=== PATIENT | male | born 1965 | race Two or more races ===

== ENCOUNTER 2017-01-18 07:36 | Emergency (ER) | payer OTHER ==
--- NOTE | ~2017-01-18 | EKG ---
PATIENT: HARSHA GUTIERREZ UNIT #: [id number] Ventricular Rate: 91 BPM Atrial Rate: 91 BPM P-R Interval: 152 ms QRS Duration: 88 ms Q-T Interval: 378 ms QTC Calculation(Bezet): 464 ms P [place]: 53 degrees Calculated R [place]: 32 degrees Calculated T [place]: 37 degrees Diagnosis Line: Normal sinus rhythm Diagnosis Line: Normal ECG Diagnosis Line: When compared with ECG of 18-JAN-2017 06:47, Diagnosis Line: (unconfirmed) Diagnosis Line: No significant change was found Diagnosis Line: Confirmed by ADITYA PERES MD ([id number]) on 01/20/2017 Diagnosis Line: 9:44:21 AM INTERPRETING MD: LARISA SNOWDEN
[2017-01-18 07:05] LABS: BASOPHIL# 0.1 X10e3 (0-0.3); BASOPHIL% 3.4 % (0-2.5); DIFF IND NO; EOSINOPHIL% 0.7 % (0.0-7.0); HEMATOCRIT 42.4 % (38.0-50.0); HEMOGLOBIN 14.4 gm/dL (13.0-16.0); LYMPHOCYTE# 0.9 X10e3 (1.0-3.5); LYMPHOCYTE% 22.2 % (17.0-45.0); MEAN CELL VOLUME 99.2 FL (83-96); MEAN CORPUSCULAR HEMOGLOBIN 33.7 PG (28-34); MEAN PLATELET VOLUME 9.8 FL (6.5-11.5); MONOCYTE# 0.4 X10e3 (0-1.0); MONOCYTE% 9.1 % (3.0-12.0); NEUTROPHIL# 2.5 X10e3 (1.5-7.1); NEUTROPHIL% 64.6 % (40-75); PLATELET COUNT 139 X10e3 (140-420); RED BLOOD COUNT 4.28 X10e (3.90-5.60); RED CELL DISTRIBUTION WIDTH 12.5 % (11.0-15.5); WHITE BLOOD COUNT 3.9 X10e3 (4.0-10.5)
[2017-01-18 07:06] LABS: POC - CKMB 6.3 ng/mL (0.0-7.9); POC - TROPONIN <0.05 ng/mL (<=0.05)
[2017-01-18 08:09] LABS: ALBUMIN SERUM 4.8 g/dL (3.5-5.0); BILIRUBIN, DIRECT 0.2 mg/dL (0.0-0.2); BILIRUBIN,TOTAL 1.2 mg/dL (0.2-2.0); BUN/CREATININE RATIO 14.28; CALCIUM SERUM 9.1 mg/dL (8.4-10.2); CREATININE SERUM 0.7 mg/dL (0.6-1.4); GLOM FILT RATE Estimated 109.3 mL/min (>60); POTASSIUM 3.3 mmol/L (3.5-5.1); PROTEIN TOTAL SERUM 8.5 g/dL (6.0-8.3)
== END 2017-01-18 10:00 | disposition home or self-care (01) ==
LOC: CED 07:36
PROVIDERS: Emergency Medicine
DX: R10.13 Epigastric pain (principal); R11.2 Nausea with vomiting, unspecified
CPT/HCPCS: 36415; 80048; 80076; 82553; 83690; 84484; 85025; 93005; 96374; 96375; 99284; J2270; J2405

== ENCOUNTER 2017-05-12 14:15 | Observation (INO) | payer OTHER ==
[~2017-05-12] VITALS: Ht 167.6 cm; Wt 73.4 kg
--- NOTE | ~2017-05-12 | HP ---
Unit #: [id number] #: [id number] Patient: HARSHA GUTIERREZ [id number] [facility] [address] [place], [place] [address] [id number] MR#: [id number] NAME: HARSHA GUTIERREZ. ROOM: 330 Age: Sex: M Admission Date: 05/12/2017 : 1965 Attending Physician: Ricarda Greer M.D. Primary Care Physician: Primary Care Physician No HISTORY AND PHYSICAL REVISED/ADDENDED REPORT CHIEF COMPLAINT Nausea and vomiting. HISTORY OF PRESENT ILLNESS The patient is a 52-year-old male with a past medical history of alcohol abuse who presented to the emergency department for evaluation of the above. The patient states that he has nausea and vomiting for three days. He reports more than ten bouts of nonbloody emesis within the past 24 hours. He denies any diarrhea. He states he has had abdominal cramping. He denies any fever. No cough or cold symptoms. No urinary problems. He drinks most days. He states that he drinks rum. JOB [id number] ADDENDUM HPI In the emergency department, initial pulse was 100, blood pressure 166/95. Acute abdominal series was negative. Laboratory notable for AST and ALT and 159 and 59, respectively. He was noted to be tremulous. He received a total of 2 mg of Ativan, 1 liter of normal saline, 4 mg of Zofran. He is being admitted to [facility] for evaluation and further treatment. PAST MEDICAL HISTORY The patient denies significant chronic medical issues. PAST SURGICAL HISTORY The patient had endoscopy at [facility] a year ago (no records). SOCIAL HISTORY The patient lives with family. He drinks rum. He states that he typically drinks a few shots of rum most days. His last drink was on the 10 of May. He has gone through withdrawal in the past, but denies ever having withdrawal seizure. There is no tobacco use. He works at the [employer]. FAMILY HISTORY Notable for both parents being healthy. He denies a family history of diabetes. Unit #: [id number] #: [id number] Patient: HARSHA GUTIERREZ ALLERGIES No known allergies. HOME MEDICATIONS Listed Zofran p.r.n. REVIEW OF SYSTEMS A complete review of systems is negative, except as indicated in the HPI. DIAGNOSTIC TESTS IMAGING: Acute abdominal series is unremarkable. LABORATORY: Urine tox screen is negative. Urinalysis notable for 2+ protein, 1+ ketones. Comprehensive metabolic panel notable for glucose of 134, AST and ALT 159 and 59, respectively. Lipase is 36. Alcohol level is less than 5. Complete blood count notable for MCV of 99.5, platelets 132. PHYSICAL EXAMINATION VITAL SIGNS: Temperature is 98.9, pulse 100, respirations 16, blood pressure 166/95, oxygen saturation 97% on room air. GENERAL: The patient is awake and alert. He is somewhat diaphoretic. HEENT: The head is atraumatic. Mucous membranes are moist. NECK: Supple. Trachea is midline. CARDIOVASCULAR: Regular rate and rhythm. LUNGS: Clear to auscultation bilaterally with no increased work of breathing. ABDOMEN: Soft and nontender with bowel sounds present in all four quadrants. EXTREMITIES: Nontender with no pedal edema. NEUROLOGIC: The patient is awake and alert. He follows commands. He is somewhat tremulous. SKIN: Diaphoretic. ASSESSMENT The patient is a 52-year-old male with: 1. Alcohol withdrawal. The patient's last drink was May 10, 2017. He received a total of 2 mg of Ativan in the emergency department. 2. Transaminitis secondary to alcohol abuse. 3. Thrombocytopenia with platelet count of 132. PLAN 1. Admit for observation to intermediate level. 2. Advance to clear liquids as tolerated. 3. Alcohol withdrawal protocol to start now. 4. Librium 25 mg p.o. q.6 hours, first dose now. 5. manager ship, social work consult regarding alcohol abuse. 6. Check magnesium level and INR. 7. EKG and cardiac enzymes if not done. 8. Repeat labs in the morning. Unit #: [id number] #: [id number] Patient: HARSHA GUTIERREZ 9. SCDs for DVT prophylaxis. 10. Additional workup and consultants based on above. Dictated by Donavon Rascon TD: 05/13/2017 05:49 JOB #: [id number] Delete Sovera HISTORY AND PHYSICAL Page 1 of 1 X Ricarda Greer MD X HISTORY AND PHYSICAL
--- NOTE | ~2017-05-12 | CR2 ---
[facility] A Service of [facility] & [facility] RADIOLOGY TEXT RESULTS PATIENT: HARSHA GUTIERREZ LOCATION: [facility] : [birth year] UNIT #: [id number] AGE: [address]: Anthony Dorantes MD SEX: M ORDER DR: [id number] [facility] [address]. [place], [place] [address] [id number] MR#: [id number] Acc #: [id number] NAME: HARSHA GUTIERREZ : 1965 SEX: M STUDY DATE/TIME: 05/12/2017 14:58 UNIT: [facility] ROOM: STUDY DESCRIPTION: CR Abdomen Acute Series Attending Physician: Anthony Dorantes M.D. Ordering Physician: Anthony Dorantes M.D. Primary Care Physician: No Primary Care Physician MEDICAL IMAGING REPORT This report is preliminary unless electronic signature is present EXAM Acute abdominal series HISTORY Nausea, vomiting, abdominal pain for 1 day. FINDINGS PA upright of the chest demonstrates no acute cardiopulmonary disease. No free air noted in the diaphragms. Supine and upright views of the abdomen straits normal nonobstructive bowel gas pattern. No abnormal masses or calcifications. No organomegaly. Mild dextrocurvature lumbar spine with mild multilevel degenerative disc changes. IMPRESSION Unremarkable acute abdominal series. Dictated by... Tim Barber M.D. THIS IS AN ELECTRONICALLY VERIFIED REPORT iTm Barber M.D. at 05/12/2017 7:57 PM QUINTON/bree TD: 05/12/2017 16:21 JOB #: [id number] MEDICAL IMAGING REPORT Page 1 of 1 COPY
--- NOTE | ~2017-05-12 | DS ---
Unit #: [id number] #: [id number] Patient: HARSHA GUTIERREZ [id number] [address] [place], [place] [address] [id number] I MR#: [id number] NAME: HARSHA GUTIERREZ. ROOM: 330 Age: 52 Sex: M Admission Date: 05/12/2017 : 1965 Discharge Date: 05/14/2017 Attending Physician: Ronel Kelly M.D. Primary Care Physician: No Primary Care Physician DISCHARGE SUMMARY REASON FOR ADMISSION Nausea, vomiting. HISTORY OF PRESENT ILLNESS/HOSPITAL COURSE Patient is a 52-year-old male with a relatively unremarkable past medical history, with the exception of alcohol abuse, who presented secondary to several episodes of nausea, vomiting at home. Subsequently he was placed on telemetry floor. He had no acute episodes while he was here in the hospital. He was placed on CIWA protocol, as he was a daily alcohol drinker. He did not exhibit any acute withdrawal symptoms. His CIWA score, for the past 3 times, has been 0. He has received Librium on a scheduled basis. I will give him a prescription for Librium 25 mg p.o. q.8 times an additional 5 days. His laboratory studies are relatively unremarkable at time of discharge. His A1C is 5.2%. His LFTs borderline with an AST at 113, ALT at 46. His CBC shows a white blood cell count of 3.6, hemoglobin 13.8, platelets are 141. At this point in time patient is clinically stable for discharge. He will be discharged home with the understanding to follow up with the PCP in 7 to 10 days. I have also asked him to decrease his alcoholic intake significantly, as his AST is already elevated. He expressed understanding and agreement. All plans were reviewed with the patient's daughter, as well, who was present at bedside. FINAL DISCHARGE DIAGNOSES 1. Intractable nausea, vomiting likely secondary to alcohol withdrawal, now resolved. 2. Transaminitis/elevated LFTs likely secondary to chronic alcohol abuse. DISCHARGE MEDICATIONS Librium 25 mg p.o. q.8 x5 days. Dictated by... Donavon Horta/jerald Unit #: [id number] #: [id number] Patient: MATTAYEHARSHA Wu TD: 05/17/2017 13:50 JOB #: [id number] DISCHARGE SUMMARY Page 1 of 1 X Ronel Kelly MD X DISCHARGE SUMMARY
--- NOTE | ~2017-05-12 | EKG ---
PATIENT: HARSHA GUTIERREZ UNIT #: [id number] Ventricular Rate: 75 BPM Atrial Rate: 75 BPM P-R Interval: 152 ms QRS Duration: 92 ms Q-T Interval: 398 ms QTC Calculation(Bezet): 444 ms P [place]: -9 degrees Calculated R [place]: 24 degrees Calculated T [place]: 14 degrees Diagnosis Line: Normal sinus rhythm Diagnosis Line: Normal ECG Diagnosis Line: When compared with ECG of 12-MAY-2017 21:02, Diagnosis Line: (unconfirmed) Diagnosis Line: No significant change was found Diagnosis Line: Confirmed by ELISA SUBRAMANIAN MD ([id number]) on Diagnosis Line: 05/14/2017 4:43:13 PM INTERPRETING MD: CHINYERE
--- NOTE | ~2017-05-12 | EKG ---
PATIENT: HARSHA GUTIERREZ UNIT #: [id number] Ventricular Rate: 64 BPM Atrial Rate: 64 BPM P-R Interval: 170 ms QRS Duration: 100 ms Q-T Interval: 450 ms QTC Calculation(Bezet): 464 ms P [place]: 54 degrees Calculated R [place]: 57 degrees Calculated T [place]: 61 degrees Diagnosis Line: Normal sinus rhythm Diagnosis Line: Normal ECG Diagnosis Line: No previous ECGs available Diagnosis Line: Confirmed by ELISA SUBRAAMNIAN MD ([id number]) on Diagnosis Line: 05/14/2017 4:31:43 PM INTERPRETING MD: CHINYERE
[2017-05-12 15:03] LABS: BASOPHIL% 0.9 % (0-2.5); HEMATOCRIT 38.1 % (38.0-50.0); HEMOGLOBIN 13.2 gm/dL (13.0-16.0); LYMPHOCYTE# 0.4 X10e3 (1.0-3.5); LYMPHOCYTE% 8.9 % (17.0-45.0); MEAN CELL VOLUME 99.5 FL (83-96); MEAN CORPUSCULAR HEMOGLOBIN 34.5 PG (28-34); MEAN CORPUSCULAR HGB CONC 34.7 g/dL (30-36); MEAN PLATELET VOLUME 8.7 FL (6.5-11.5); MONOCYTE# 0.3 X10e3 (0-1.0); MONOCYTE% 6.1 % (3.0-12.0); NEUTROPHIL% 84.1 % (40-75); PLATELET COUNT 132 X10e3 (140-420); RED BLOOD COUNT 3.83 X10e (3.90-5.60); RED CELL DISTRIBUTION WIDTH 13.4 % (11.0-15.5); WHITE BLOOD COUNT 4.7 X10e3 (4.0-10.5)
[2017-05-12 15:06] LABS: DIFF IND NO
[2017-05-12 15:10] LABS: URINE SOURCE CLEAN CATCH
[2017-05-12 15:17] LABS: ALBUMIN SERUM 5.2 g/dL (3.5-5.0); ALKALINE PHOSPHATASE 48 U/L (32-92); ALT (SGPT) 59 U/L (10-40); AST (SGOT) 159 U/L (10-42); BILIRUBIN, DIRECT 0.2 mg/dL (0.0-0.2); BILIRUBIN,INDIRECT 1.1 mg/dL (0.0-0.9); BILIRUBIN,TOTAL 1.3 mg/dL (0.2-2.0); BLOOD UREA NITROGEN 14 mg/dL (9-23); CALCIUM SERUM 9.3 mg/dL (8.4-10.2); CARBON DIOXIDE 26 mmol/L (22-31); CHLORIDE 102 mmol/L (100-111); CREATININE SERUM 0.7 mg/dL (0.6-1.4); GLOM FILT RATE Estimated 108.5 mL/min (>60); GLUCOSE FASTING 134 mg/dL (70-110); LIPASE 36 U/L (22-51); POTASSIUM 3.8 mmol/L (3.5-5.1); PROTEIN TOTAL SERUM 8.9 g/dL (6.0-8.3); SODIUM 143 mmol/L (135-145)
[2017-05-12 15:24] LABS: URINE APPEARANCE CLEAR; URINE BILIRUBIN NEG (NEG); URINE BLOOD NEG (NEG); URINE COLOR DK YELLOW; URINE GLUCOSE NEG (NEG); URINE KETONE 1+ (NEG); URINE LEUKOCYTE ESTERASE NEG (NEG); URINE NITRATE NEG (NEG); URINE PH 7.5 (5-8); URINE PROTEIN 2+ (NEG); URINE SPECIFIC GRAVITY 1.029 (1.003-1.035)
[2017-05-12 15:25] LABS: ALCOHOL BLOOD <5 mg/dL (0)
[2017-05-12 15:30] LABS: URINE BACTERIA AUWI NEG (NEGATIVE); URINE SQUAMOUS EPITHELIAL CELL NONE SEEN /[HPF]; UWBCS1 AUWI 0-2 (0-5)
[2017-05-12 15:32] LABS: CULTURE INDICATED? NO
[2017-05-12 15:53] LABS: AMPHETAMINE NEG (NEG); BARBITURATES NEG (NEG); BENZODIAZEPINES NEG (NEG); COCAINE NEG (NEG); MARIJUANA NEG (NEG); OPIATES NEG (NEG); TRICYCLIC ANTIDEPRESSANTS NEG (NEG); U METHADONE NEG (NEG)
[2017-05-12 21:39] LABS: %MB 0.7 % (0.0-4.0); MB 6.8 ng/ml
[2017-05-13 00:15] LABS: INR 1.1; PROTHROMBIN TIME (PATIENT) 11.5 SECONDS (10.0-11.7)
[2017-05-13 00:43] LABS: ALBUMIN SERUM 4.6 g/dL (3.5-5.0); BILIRUBIN,TOTAL 1.3 mg/dL (0.2-2.0); BUN/CREATININE RATIO 23.33; CALCIUM SERUM 8.8 mg/dL (8.4-10.2); CREATININE SERUM 0.6 mg/dL (0.6-1.4); GLOM FILT RATE Estimated 115.6 mL/min (>60); POTASSIUM 3.6 mmol/L (3.5-5.1); PROTEIN TOTAL SERUM 7.9 g/dL (6.0-8.3)
[2017-05-13 00:47] LABS: THYROID STIMULATING HORMONE 1.69 uIU/ml (0.34-5.60)
[2017-05-13 00:54] LABS: FREE THYROXIN (T4) 0.6 ng/dL (0.58-1.64)
[2017-05-13 03:10] LABS: HEMATOCRIT 37.1 % (38.0-50.0); HEMOGLOBIN 12.6 gm/dL (13.0-16.0); MEAN CELL VOLUME 100.7 FL (83-96); MEAN CORPUSCULAR HEMOGLOBIN 34.2 PG (28-34); MEAN PLATELET VOLUME 9.2 FL (6.5-11.5); RED BLOOD COUNT 3.68 X10e (3.90-5.60); RED CELL DISTRIBUTION WIDTH 13.1 % (11.0-15.5); WHITE BLOOD COUNT 3.7 X10e3 (4.0-10.5)
[2017-05-13 03:25] LABS: INR 1.1; PROTHROMBIN TIME (PATIENT) 11.4 SECONDS (10.0-11.7)
[2017-05-13 03:43] LABS: ALBUMIN SERUM 4.4 g/dL (3.5-5.0); BUN/CREATININE RATIO 21.66; CALCIUM SERUM 8.7 mg/dL (8.4-10.2); CREATININE SERUM 0.6 mg/dL (0.6-1.4); GLOM FILT RATE Estimated 115.6 mL/min (>60); MAGNESIUM 1.8 mg/dL (1.6-3.0); POTASSIUM 3.4 mmol/L (3.5-5.1); PROTEIN TOTAL SERUM 7.9 g/dL (6.0-8.3)
[2017-05-13 04:38] LABS: %MB 0.8 % (0.0-4.0)
[2017-05-13 09:45] LABS: %MB 0.7 % (0.0-4.0); MB 5.9 ng/ml
[2017-05-14 05:41] LABS: HEMOGLOBIN 13.8 gm/dL (13.0-16.0); MEAN CELL VOLUME 100.2 FL (83-96); MEAN CORPUSCULAR HEMOGLOBIN 33.8 PG (28-34); MEAN CORPUSCULAR HGB CONC 33.7 g/dL (30-36); MEAN PLATELET VOLUME 9.7 FL (6.5-11.5); RED BLOOD COUNT 4.09 X10e (3.90-5.60); RED CELL DISTRIBUTION WIDTH 13.1 % (11.0-15.5); WHITE BLOOD COUNT 3.6 X10e3 (4.0-10.5)
[2017-05-14 06:27] LABS: ALBUMIN SERUM 4.4 g/dL (3.5-5.0); BILIRUBIN,TOTAL 1.2 mg/dL (0.2-2.0); BUN/CREATININE RATIO 14.28; CALCIUM SERUM 8.8 mg/dL (8.4-10.2); CREATININE SERUM 0.7 mg/dL (0.6-1.4); GLOM FILT RATE Estimated 108.5 mL/min (>60); MAGNESIUM 2.2 mg/dL (1.6-3.0); PROTEIN TOTAL SERUM 8.2 g/dL (6.0-8.3)
[2017-05-14] MEDS ORDERED: LIBRIUM25 M1 PO (13:20)
== END 2017-05-14 14:55 | disposition home or self-care (01) | DRG 897 ==
LOC: CED 14:15 → C3A PCU 19:30 → CEDOF 19:30 → CED 20:18 → CEDOF 20:18 → C3A PCU 23:07 → CEDOF 23:07 → C3A PCU 05-13 08:19
PROVIDERS: Emergency Medicine; Family Medicine
DX: F10.239 Alcohol dependence with withdrawal, unspecified (principal); R11.2 Nausea with vomiting, unspecified; R74.0 Nonspecific elevation of levels of transaminase and lactic acid dehydrogenase [LDH]; R94.5 Abnormal results of liver function studies; D69.6 Thrombocytopenia, unspecified
CPT/HCPCS: 36415; 74022; 80048; 80053; 80076; 80307; 81003; 82550; 82553; 83036; 83690; 83735; 84132; 84439; 84443; 84484; 85025; 85027; 85610; 85730; 86592; 93005; 94760; 96361; 96374; 96375; 96376; 99285; G0378; G0480; J2060; J2405; J3411; J3475